=== PATIENT | female | born 1995 | race Two or more races ===

== ENCOUNTER 2021-01-03 03:13 | Emergency (ER) | payer MEDICAID ==
--- NOTE | 2021-01-03 05:02 | ED Physician Documentation ---
PD HPI FEMALE - Stated complaint Stated Complaint: BLEEDING - Chief complaint Chief Complaint: Abd Pain - History obtained from History obtained from: Patient - History of Present Illness Timing - onset: Enter time (01:30), Today Timing - details: Abrupt onset Pain level max: 0 Pain level max: 0 Associated symptoms: Vaginal bleeding. 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 She is approximately 14w 3d , primagravida. Blood type is O+. Denies pain, cramping. She saw her certified health education specialist yesterday and, per patient, plan is for outpatient US this coming week. Review of Systems Constitutional: reports: Reviewed and negative Cardiac: reports: Reviewed and negative Respiratory: reports: Reviewed and negative GI: reports: Reviewed and negative : reports: Vaginal bleeding, Now EGA (14w3d). denies: Dysuria, Frequency PD PAST MEDICAL HISTORY - Past Medical History Past Medical History: No - Past Surgical History Past Surgical History: No - Present Medications Home Medications: Ambulatory Orders Medication Instructions Recorded Confirmed No Known Home Medications 01/03/21 01/03/21 - Allergies Allergies/Adverse Reactions: Allergies Allergy/AdvReac Type Severity Reaction Status Date / Time nitrofurantoin Allergy Unknown Verified 01/03/21 03:30 [From [facility]] - Social History Does the pt smoke?: No Smoking Status: Never smoker Does the pt drink ETOH?: No Does the pt have substance abuse?: No - Immunizations Immunizations are current?: Yes - POLST Patient has POLST: No PD ED PE NORMAL - Vitals Vital signs reviewed: Yes - General General: Alert and oriented X 3, No acute distress, Well developed/nourished - Cardiac Cardiac: RRR, No murmur - Respiratory Respiratory: No respiratory distress, Clear bilaterally - Abdomen Abdomen: Soft, Non tender - Back Back: No CVA TTP Results - Vitals Vitals: Vital Signs - 24 hr 01/03/21 01/03/21 01/03/21 03:25 03:57 04:59 Temperature 36.5 C Heart Rate 83 Respiratory 18 15 15 Rate Blood Pressure 114/72 O2 Saturation 99 01/03/21 01/03/21 01/03/21 05:22 05:49 05:58 Temperature Heart Rate 64 64 Respiratory 15 16 15 Rate Blood Pressure 108/59 L 104/60 O2 Saturation 98 99 Oxygen O2 Source Room air - Rads (name of study) OB US Radiology: Prelim report reviewed, See rad report PD MEDICAL DECISION MAKING - ED course Complexity details: reviewed results, re-evaluated patient, considered differential, d/w patient ED course: patient is able to show me blood test results (on her cell phone) performed few days ago with unremarkable results (specifically, h/h just below normal levels and blood type is O+). US tonight is reassuring, with IUP 15w 3d and no complications such as subchorionic bleed. Results d/w patient, instructed to f/u with certified health education specialist, return precautions discussed Departure - Departure Disposition: 01 Home, Self Care Clinical Impression: Vaginal bleeding in Condition: Good Instructions: ED Miscarriage Poss Follow-Up: MARIA D HONEYCUTT DO [Primary Care Provider] - Discharge Date/Time: 01/03/21 05:59
[2021-01-03 05:53] VITALS: BP 104/60
--- NOTE | 2021-01-03 08:52 | Ultrasound Report ---
PROCEDURE: OB 14+ Weeks INDICATIONS: vaginal bleeding, 14 w 3 d OUTSIDE/PRIOR DATING DATA: Last menstrual period (LMP): 09/19/2020. LMP-based estimated date of delivery (RED): 06/26/2021. First dating scan (date and location): 01/03/2021. Estimated date of delivery (RED) from first dating scan: 06/24/2021. TECHNIQUE: Real-time scanning was performed of the fetus, with image documentation and biometric measurements. COMPARISON: None. FINDINGS: General: A single living intrauterine gestation is present. Presentation: Variable Placenta: Placental position is anterior, without previa. There is an image that questions presence of circumvallate inferior placenta. Amniotic fluid index: 12.9 cm, within normal limits for gestational age. heart rate: 145 beats per minute. Maternal cervical canal: 3.7 cm long; normal length is 2.5 cm or more. biometrics: Biparietal diameter: 3.1 cm 15 weeks 5 days Head circumference: 11.0 cm 15 weeks 2 days Abdominal circumference: 9.0 cm 15 weeks 1 day Femur length: 1.8 cm 15 weeks 2 days Estimated gestational age from initial scan: not applicable. Composite gestational age from present scan: 15 weeks 3 days Measurement variability for biometric dating: +/- 10 days from 12-20 weeks gestation, +/- 2 weeks fro m 20-30 weeks gestation, +/- 3 weeks for 30 weeks gestation or later. Anatomic survey: Neuro: Ventricles are non-dilated at less than 10 mm. Cisterna magna is normal at 3-11 mm. Cerebel lum is normal in size and morphology. Nuchal skin fold: Normal at less than 6 mm between 14-20 weeks gestational age. Face: Nose and lips, facial profile are normal. Spine: No evidence for spina bifida. Heart: 4-chambered heart is present, with normal ventricular outflow tracts. Diaphragm: Diaphragm is intact. Stomach: Left-sided stomach is present. Kidneys: No hydronephrosis. Normal is less than 5 mm in 2nd trimester, less than 7 mm in 3rd trimester. Cord: 3-vessel cord has orthotopic insertion. Bladder: Normal in size. Extremities: All 4 extremities identified. IMPRESSION: 1. Single live intrauterine with ultrasound gestational age of 15 weeks 3 days. 2. Single image which could represent a circumvallate placenta. However, it is not well-characterized and short interval imaging follow-up is recommended. The above findings are concordant with preliminary report. Reviewed by: Regla Carranza MD on 01/03/2021 8:50 AM PDT Approved by: Regla Carranza MD on 01/03/2021 8:50 AM PDT Station ID: [id number]
== END 2021-01-03 05:59 | disposition home or self-care (01) ==
LOC: ED 03:13
DX: O20.9 Hemorrhage in early pregnancy, unspecified (principal); Z3A.15 15 weeks gestation of pregnancy
CPT/HCPCS: 99283; 99284